=== PATIENT | female | born 2000 | race African-American/Black ===

== ENCOUNTER 2023-07-12 22:23 | Emergency (ER) | payer OTHER ==
[~2023-07-12] VITALS: Ht 175.3 cm; Wt 87.0 kg
[2023-07-12 22:29] VITALS: O2SAT 100
[2023-07-12] MEDS ORDERED: SODIUM CHLORIDE 0.9% 1,000 ML IV ONE (23:45)
[2023-07-13 03:34] VITALS: BP 115/73; PULSE 99; RESP 16; TEMP 98.1
== END 2023-07-13 03:39 | disposition home or self-care (01) ==
LOC: ER 22:23
DX: F10.129 Alcohol abuse with intoxication, unspecified (principal); Y90.9 Presence of alcohol in blood, level not specified
CPT/HCPCS: 80320; 36415; 96360; 99283; J7030; G0480